=== PATIENT | male | born 1960 | race Two or more races ===

== ENCOUNTER 2023-02-09 07:59 | Emergency (ER) | payer BC, SELFPAY ==
[2023-02-09 08:01] VITALS: BP 162/102; PULSE 68; RESP 20; TEMP 36.4; O2SAT 99; BMI 26.6
--- NOTE | 2023-02-09 08:06 | ED_ITS ---
HPI - Dizziness General Chief Complaint: Dizziness Stated Complaint: NOSE BLEED/ DIZZINESS Time Seen by Provider: 02/09/23 08:06 History of Present Illness HPI Narrative: Patient presents to emergency department complaining of dizziness. Patient states he had epistaxis this morning from the right naris. Denied any trauma. He states it bled for an hour and a half and it was not stopping. The patient was at driving to work and was not able to drive himself home. He called his because he started feeling dizzy and had a headache and had some numbness to the right forearm. He has a history of hypertension and states he took all of his medications this morning but cannot recall what they're. He denied any visual disturbance, speech difficulties. He denied any palpitations, diaphoresis. Denied any nausea, vomiting, diarrhea, constipation, or abdominal pain. She takes Plavix. Patient is concerned because he had at [facility] year and a half ago for which she was seen at [facility]. 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 She states he last saw his neurologist last year and was given a clean bill of health. His blood pressure is very high. Related Data Home Medications Medication Instructions Recorded Confirmed atorvastatin 80 mg tablet 80 mg PO DAILY 02/09/23 02/09/23 clopidogrel 75 mg tablet 75 mg PO DAILY 02/09/23 02/09/23 lisinopril 40 mg tablet 40 mg PO DAILY 02/09/23 02/09/23 metoprolol succinate 25 mg 25 mg PO DAILY 02/09/23 02/09/23 tablet,extended release 24 hr omeprazole 20 mg capsule,delayed 40 mg PO DAILY 02/09/23 02/09/23 release Allergies Allergy/AdvReac Type Severity Reaction Status Date / Time No Known Drug Allergies Allergy Verified 02/09/23 08:07 Review of Systems ROS Status of ROS 10 or more systems reviewed and unremarkable except as noted in history and below Exam Narrative Exam Narrative: Nurses notes and vital signs reviewed and patient is not hypoxic. General: Nontoxic, Well-appearing and in no apparent distress. Skin: Warm, dry, no pallor noted. No Rash Head: Normocephalic, atraumatic. Neck: Supple, non-tender. Eye: Pupils are equal, round and EOMI. No scleral icterus. Ears, Nose, Mouth, and Throat: TM clear, no posterior oropharynx erythema. Right naris with septum clot. no active bleeding. no nasal mucosal hypertrophy, uvula is mid-line Oral mucosa is moist Cardiovascular: Regular Rate and Rhythm without murmur, gallop or rub. Respiratory: No accessory muscle use or respiratory distress. Lungs are clear to auscultation, no wheezing, rales or rhonchi Chest Wall: no tenderness Back: No midline thoracic or lumbar vertebral tenderness. No CVA tenderness Musculoskeletal: normal ROM, no calf or popliteal tenderness, no lower extremity edema/swelling GI: Abdomen is soft, non-distended. Normal bowel sounds. No masses appreciated. No tenderness to palpation. No rebound, guarding, or rigidity noted. Neurological: A&O x4. No cranial nerve dysfunction observed. No truncal ataxia. Moves all extremities. Sensation intact. Psychiatric: Cooperative and interactive. Normal mood and affect. Constitutional Vital Signs - 24 hr 02/09/23 08:01 02/09/23 08:52 02/09/23 08:52 Temperature 97.6 F Pulse Rate 61 62 Pulse Rate [Monitor] 68 Respiratory Rate 20 Blood Pressure 166/98 H 177/103 H Blood Pressure [Left Arm] 162/102 H Pulse Oximetry 99 Oxygen Delivery Method Room Air 02/09/23 08:53 02/09/23 08:28 02/09/23 09:39 Temperature Pulse Rate 97 H Pulse Rate [Monitor] 67 59 L Respiratory Rate 12 20 Blood Pressure 158/112 H Blood Pressure [Left Arm] 158/112 H 171/102 H Pulse Oximetry 98 98 Oxygen Delivery Method Room Air Room Air Course Vital Signs Vital signs: Vital Signs Temperature 97.6 F 02/09/23 08:01 Pulse Rate 68 02/09/23 08:01 Respiratory Rate 20 02/09/23 08:01 Blood Pressure 162/102 H 02/09/23 08:01 Pulse Oximetry 99 02/09/23 08:01 Oxygen Delivery Method Room Air 02/09/23 08:01 Temperature 97.6 F 02/09/23 08:01 Pulse Rate 59 L 02/09/23 09:39 Respiratory Rate 20 02/09/23 09:39 Blood Pressure 171/102 H 02/09/23 09:39 Pulse Oximetry 98 02/09/23 09:39 Oxygen Delivery Method Room Air 02/09/23 09:39 MDM - Dizziness MDM Narrative Medical decision making narrative: Patient's no longer bleeding. States the dizziness has resolved. And he does not have any forearm paresthesias. He states he is not sure if he fell. Or if it was just all due to the anxiety from the bleeding.Patient was given IV fluids. There is no active bleeding. Blood pressure remains 170/102. Patient states he took lisinopril, and metoprolol this morning. He continues to take Plavix. Discussed with the patient To follow-up with primary care doctor. He is to recheck his blood pressure at home and documented between now and the time he sees his primary care doctor. He was given parameters of when to return to the emergency department. The patient was given a nose clamp if he were to develop epistaxis in the future he will clamp and wait 20 minutes if there is no resolution he will return to the emergency department. He is to continue taking Plavix. At this time the patient is without objective evidence of an acute process requiring hospitalization or inpatient management. The patient has remained hemodynamically stable. No additional indication for emergent studies at this time. I answered all questions. Discussed discharge instructions including standard anticipatory guidance and what should prompt a return to the emergency department, including if they get worse are not getting better or develops any new or concerning symptoms. I've given them specific time frame in which to follow-up, and who to follow-up with. The patient demonstrates understanding. Patient is nontoxic and stable for discharge with outpatient follow-up. This note was created with the assistance of a speech recognition program. Although the intention is to generate documents that actually reflects the content of the visit, no guarantees can be provided that every mistake has been identified and corrected by editing. Differential Diagnosis Differential diagnosis: Likely orthostatic hypotension and transient cerebral ischemia Lab Data Attestation: I reviewed the patient's lab results. Labs: Lab Results 02/09/23 Range/Units 08:35 WBC 4.2 (4.0-11.0) 10^3/uL RBC 4.19 L (4.70-6.10) 10^6/uL Hgb 14.0 (14.0-18.0) g/dL Hct 39.7 L (42.0-54.0) % MCV 94.7 H (80.0-94.0) fL MCH 33.4 (25.9-34.0) pg MCHC 35.3 H (29.9-35.2) g/dL RDW 11.7 (11.0-15.0) % Plt Count 217 (150-450) 10^3/uL MPV 9.5 (9.5-13.5) fL Neut % (Auto) 59.7 (43.0-75.0) % Lymph % (Auto) 24.8 (20.5-60.0) % [place] % (Auto) 11.1 (1.7-12.0) % Eos % (Auto) 3.3 (0.9-7.0) % Baso % (Auto) 0.9 (0.2-2.0) % Neut # (Auto) 2.5 (1.4-6.5) 10^3/uL Lymph # (Auto) 1.1 L (1.2-3.8) 10^3/uL [place] # (Auto) 0.5 (0.3-0.8) 10^3/uL Eos # (Auto) 0.1 (0.0-0.7) 10^3/uL Baso # (Auto) 0.0 (0.0-0.1) 10^3/uL Abs Immat Gran (auto) 0.01 (0.00-0.03) 10^3/uL Imm/Tot Granulo (auto) 0.2 (0.0-0.5) % PT 10.5 (9.0-11.6) sec INR 0.99 Sodium 141 (136-145) mmol/L Potassium 4.0 (3.5-5.1) mmol/L Chloride 106 (98-107) mmol/L Carbon Dioxide 26.0 (21.0-32.0) mmol/L Anion Gap 13.0 BUN 16.0 (7.0-18.0) mg/dL Creatinine 0.96 (0.70-1.30) mg/dL Est GFR ( Amer) >60 (>=60) Est GFR (Non-Af Amer) >60 (>=60) BUN/Creatinine Ratio 16.7 Glucose 105 (74-106) mg/dL Calcium 8.5 (8.5-10.1) mg/dL Total Bilirubin 0.7 (0.2-1.0) mg/dL AST 20 (15-37) U/L ALT 29 (16-63) U/L Alkaline Phosphatase 69 (46-116) U/L Total Creatine Kinase 82 (39-308) U/L CK-MB (CK-2) 1.18 (<=3.60) ng/mL Myoglobin 48 (16-96) ng/mL Troponin I High Sens 7.8 (4.0-76.1) pg/mL Total Protein 6.7 (6.4-8.2) g/dL Albumin 3.8 (3.4-5.0) g/dL Globulin 2.9 g/dL Albumin/Globulin Ratio 1.3 ECG Data Attestation: I personally reviewed and interpreted this ECG as follows: Discharge Plan Discharge Chief Complaint: Dizziness Clinical Impression: Complaint of paresthesia, Epistaxis, Dizziness, Hypertension Patient Disposition: Home, Self-Care Time of Disposition Decision: 10:20 Condition: Good Mode of Transportation: Private Vehicle Prescriptions / Home Meds: No Action atorvastatin 80 mg tablet 80 mg PO DAILY clopidogrel 75 mg tablet 75 mg PO DAILY lisinopril 40 mg tablet 40 mg PO DAILY metoprolol succinate 25 mg tablet extended release 24 hr 25 mg PO DAILY omeprazole 20 mg capsule,delayed release(DR/EC) 40 mg PO DAILY Instructions: Nosebleed (ED), Hypertension (ED), Dizziness (ED) Additional Instructions: Continue taking all her medications. Record her blood pressure as discussed. Follow up with her primary care doctor in the morning for reevaluation. Return to the emergency department with any problems or concerns as discussed. Stand Alone Forms: Portal Instructions Referrals: Physician,Non-Staff, MD [Primary Care Provider] - 1 week
[2023-02-09 08:12] VITALS: PULSE 65
--- NOTE | 2023-02-09 08:17 | CT_ITS ---
The [address] [address] Patient Name: ROLAND CHARLES MRN: [id number] date: 1960 Sex: M Assigned Patient Location: ER Current Patient Location: Accession/Order Number: [id number] Exam Date: 02/09/2023 08:48 Report Date: 02/09/2023 09:13 At the request of: HEIDY RANDLE Procedure: CT head/brain wo con EXAMINATION: CT head/brain wo con HISTORY: dizziness, r arm numbness , nosebleed ; cerebrovascular accident one year ago COMPARISON: No relevant comparison available. TECHNIQUE: Axial CT images were obtained without IV contrast. Dose reduction techniques were achieved by using automated exposure control and/or adjustment of mA and/or kV according to patient size and/or use of iterative reconstruction technique. FINDINGS: BRAIN: 7 mm area of decreased attenuation within the anterior superior aspect of the left frontal lobe, likely early encephalomalacic changes from prior infarction. No edema, hemorrhage, mass, acute infarction, or inappropriate atrophy. CSF SPACES: No hydrocephalus, subarachnoid hemorrhage, or mass. Appropriate for age. SKULL: No fracture, mass, or other significant visible lesion. SINUSES: No significant mucosal thickening or fluid on the limited views. ORBITS: No appreciable abnormality on the limited views. OTHER: Negative IMPRESSION: 1. No intracranial hemorrhage or CT evidence of acute ischemia. 2. Small area of decreased density suspected to represent sequela of remote infarction within left frontal lobe. Electronically authenticated by: RAE SORIANO Date: 02/09/2023 09:13
--- NOTE | 2023-02-09 08:20 | ECG_ITS ---
The [facility] Test Date: 2023-02-09 Pat Name: ROLAND CHARLES Department: Room: - Gender: Male Nurses' Association Counselor: : 1960 Requested By: [id number] Order Number: [id number] Reading MD: CARLENE ZARCO Measurements Intervals [place] Rate: 60 P: 30 MD: 206 QRS: -21 QRSD: 84 T: -4 QT: 414 QTc: 416 Interpretive Statements 1100 Sinus rhythm 5222 Moderate voltage criteria for LVH, may be normal variant 7202 Moderate left axis deviation 9130 borderline ECG No previous ECG available for comparison Electronically Signed On 02-10-2023 6:35:10 EDT by CARLENE ZARCO
[2023-02-09 08:28] VITALS: BP 158/112; PULSE 67; RESP 12; O2SAT 98
[2023-02-09 08:47] LABS: Basophils Percent Auto 0.9 % (0.2-2.0); Eosinophils Absolute Auto 0.1 10^3/uL (0.0-0.7); Eosinophils Percent Auto 3.3 % (0.9-7.0); Hematocrit 39.7 % (42.0-54.0); Immature Granulocytes Abs Auto 0.01 10^3/uL (0.00-0.03); Immature Granulocytes Pct Auto 0.2 % (0.0-0.5); Lymphocytes Absolute Auto 1.1 10^3/uL (1.2-3.8); Lymphocytes Percent Auto 24.8 % (20.5-60.0); Mean Corpuscular HGB Conc 35.3 g/dL (29.9-35.2); Mean Corpuscular Hemoglobin 33.4 pg (25.9-34.0); Mean Corpuscular Volume 94.7 fL (80.0-94.0); Mean Platelet Volume 9.5 fL (9.5-13.5); Monocytes Absolute Auto 0.5 10^3/uL (0.3-0.8); Monocytes Percent Auto 11.1 % (1.7-12.0); Neutrophils Absolute Auto 2.5 10^3/uL (1.4-6.5); Neutrophils Percent Auto 59.7 % (43.0-75.0); Platelet Count 217 10^3/uL (150-450); Red Blood Count 4.19 10^6/uL (4.70-6.10); Red Cell Distribution Width 11.7 % (11.0-15.0); White Blood Count 4.2 10^3/uL (4.0-11.0)
[2023-02-09 08:52] VITALS: BP 166/98; BP 177/103; PULSE 61; PULSE 62
[2023-02-09 08:53] VITALS: BP 158/112; PULSE 97
[2023-02-09] MEDS: 0.9 % SODIUM CHLORIDE 1,000 ML 999 ML IV (08:59)
[2023-02-09 09:00] LABS: INR 0.99; Prothrombin Time 10.5 sec (9.0-11.6)
[2023-02-09 09:39] VITALS: BP 171/102; PULSE 59; RESP 20; O2SAT 98
[2023-02-09 09:57] LABS: Alanine Aminotransferase 29 U/L (16-63); Albumin Globulin Ratio 1.3; Albumin Level 3.8 g/dL (3.4-5.0); Alkaline Phosphatase 69 U/L (46-116); Aspartate Amino Transferase 20 U/L (15-37); BUN Creatinine Ratio 16.7; Bilirubin Total 0.7 mg/dL (0.2-1.0); Calcium 8.5 mg/dL (8.5-10.1); Chloride 106 mmol/L (98-107); Creatine Kinase 82 U/L (39-308); Creatine Kinase MB 1.18 ng/mL (<=3.60); Estimated GFR (African America >60 (>=60); Estimated GFR (Non-African Ame >60 (>=60); Globulin 2.9 g/dL; Glucose 105 mg/dL (74-106); Myoglobin 48 ng/mL (16-96); Sodium 141 mmol/L (136-145); Total Protein 6.7 g/dL (6.4-8.2); Troponin I High Sensitivity 7.8 pg/mL (4.0-76.1)
== END 2023-02-09 10:37 | disposition home or self-care (01) ==
PROVIDERS: Emergency Provider Emergency Medicine
DX: R42 Dizziness and giddiness (principal); R04.0 Epistaxis; I10 Essential (primary) hypertension; R20.2 Paresthesia of skin; Z79.899 Other long term (current) drug therapy; Z86.73 Personal history of transient ischemic attack (TIA), and cerebral infarction without residual deficits; Z79.02 Long term (current) use of antithrombotics/antiplatelets
CPT/HCPCS: 36415; 70450; 80053; 82550; 82553; 83874; 84484; 85025; 85610; 93005; 99285

== ENCOUNTER 2025-08-04 09:04 | Emergency (ER) | payer BC, SELFPAY ==
--- OUTSIDE RECORDS SUMMARY | 2024-12-31 08:30 | XMS_ITS ---
Author Organization The [facility] in [place] Address [address] [place] [address] Care Team Providers Care Professor Of Geology Name Role Phone Bette Burnett Primary Care Provider Provider, Cardio Unavailable [phone] REASON FOR VISIT Hortencia Catherine 165# CP Encounters Encounter Location Date Provider Diagnosis Cardiology [facility] [address] [place] [address] 12/31/2024 Cardio Provider Plan Of Treatment Next Appt Details Provider Name:Bette Baca , 01/22/2026 04:00:00 PM, [address] [place], [address], Progress Notes * Vipin CHARLES ADOB:11/1960 (64 yo M)Acc No.[id number]:12/31/2024 UNLOCKED PROGRESS NOTE Nuclear Stress Test Patient: Melo DIANA Vipin Matta :?Cardio ProviderDOB:1960???Age:64 Y ???Sex:MaleDate:12/31/2024Phone:[phone]:[address] [place] [id number]:Bette Burnett Subjective: * Chief Complaints: * 1 . Hortencia Catherine 165# CP. * Active Problem List G43.109 Migraine with aura a nd without status migrainosus, not intractable Modified On:08/23/2023W/U Status:ngfohkzjiN10.9Gastroesophageal reflux disease, esophagitis presence not specified Modified On:09/15/2020 Status:itprifbsdV63.56XAPathological compression fracture of lumbar vertebra, initial encounter Modified On:08/15/2020 Status:xlosnkzotO98.012AAcute lumbar myofascial strain Modified On:07/07/2020 Status:pzwkdewyqW04.9Anxiety Modified On:10/12/2021 Status:hfvxgiopdR15Nokvsopys (primary) hypertension Modified On:08/23/2023 Status:jjssbrpomZ95.91Right hemiparesis Modified On:01/01/2022 Status:zyfxddwgiG96.01Aphasia Modified On:01/01/2022 Status:austingzbM81.9CVA (cerebral vascular accident) Modified On:08/23/2023 Status:ackheqkypT87.9Erectile dysfunction, unspecified erectile dysfunction type Modified On:01/10/2023 Status:mtkusllmnS34.2Mixed hyperlipidemia Modified On:01/17/2024 Status:confirmed * Medical History: Objective: * Vitals: Assessment: Plan: * Treatment: * * Electronic signature of Cardio Provider , , , [id number] on 08/04/2025 at 09:33 AM ESTSign off status: PendingVisit Status:?R/S (Rescheduled) * Provider: Melo Green Date: 0 12/31/2024 Generated for Printing/Faxing/eTransmitting on:?08/04/2025 09:33 AM EST
--- OUTSIDE RECORDS SUMMARY | 2025-01-02 08:00 | XMS_ITS ---
Author Organization The [facility] in [place] Address [address] [place] [address] Care Team Providers Care Proof Operator Name Role Phone Bette Burnett Primary Care Provider Provider, Cardio Unavailable [phone] REASON FOR VISIT Hortencia Catherine 165# CP Encounters Encounter Location Date Provider Diagnosis Cardiology [facility] [address] [place] [address] 01/02/2025 Cardio Provider Plan Of Treatment Next Appt Details Provider Name:Bette Baca , 01/22/2026 04:00:00 PM, [address] [place], [address], Progress Notes * Vipin CHE ADOB:11/1960 (64 yo M)Acc No.[id number]:01/02/2025 UNLOCKED PROGRESS NOTE Nuclear Stress Test Patient: Melo DIANA Vipin Matta :?Cardio ProviderDOB:1960???Age:64 Y ???Sex:MaleDate:01/02/2025Phone:[phone]:[address] [place] [id number]:Bette Burnett Subjective: * Chief Complaints: * 1 . Hortencia Catherine 165# CP. * Active Problem List G43.109 Migraine with aura a nd without status migrainosus, not intractable Modified On:08/23/2023W/U Status:axcxprovzA67.9Gastroesophageal reflux disease, esophagitis presence not specified Modified On:09/15/2020 Status:xsogylabvX28.56XAPathological compression fracture of lumbar vertebra, initial encounter Modified On:08/15/2020 Status:xqzklgevuF36.012AAcute lumbar myofascial strain Modified On:07/07/2020 Status:tojyhnnlmD99.9Anxiety Modified On:10/12/2021 Status:eniqezcroQ05Sfeqjqyob (primary) hypertension Modified On:08/23/2023 Status:blmbzpelhN90.91Right hemiparesis Modified On:01/01/2022 Status:jjxahunazP70.01Aphasia Modified On:01/01/2022 Status:mmnhhnmwgD94.9CVA (cerebral vascular accident) Modified On:08/23/2023 Status:ujzcavalqI48.9Erectile dysfunction, unspecified erectile dysfunction type Modified On:01/10/2023 Status:nhikqkfrnH39.2Mixed hyperlipidemia Modified On:01/17/2024 Status:confirmed * Medical History: Objective: * Vitals: Assessment: Plan: * Treatment: * * Electronic signature of Cardio Provider , , , [id number] on 08/04/2025 at 09:32 AM ESTSign off status: PendingVisit Status:?CANC (Cancelled) * Provider: Melo Green Date: 0 01/02/2025 Generated for Printing/Faxing/eTransmitting on:?08/04/2025 09:32 AM EST
--- OUTSIDE RECORDS SUMMARY | 2025-07-22 10:30 | XMS_ITS ---
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 INDICATIONS: HIGH BLOOD PRESSURE. Oral; Duration: 30 Days10/16/2024 ActiveAspirin 81 MG1 tablet Orally Once a dayActiveMetoprolol Succinate ER 50 MG TAKE 1 TABLET BY MOUTH EVERY DAY; Duration: 90 daysActiveSildenafil Citrate 50 MG1 tablet as needed Orally Once a day; Duration: 30 day(s)ActiveAtorvastatin Calcium 80 MGTAKE 1 TABLET BY MOUTH EVERY DAY FOR 90 DAYS; Duration: 90Active Clopidogrel Bisulfate 75 MGTAKE 1 TABLET BY MOUTH EVERY DAY FOR 90 DAYS; Duration: 90ActiveLisinopril 40 MGTAKE 1 TABLET BY MOUTH EVERY DAY; Duration: 90 Active Social History Tobacco Use: Social History Observation Description Date Details (start date - stop date) Never Smoker NA - NA Tobacco Use/Smoking Question Answer Notes Patient is a nonsmoker Vital Signs Weight 166.4 lbs 07/22/2025 Height 64 in 07/22/2025 Blood pressure systolic 118 mm Hg 07/22/20 25 Blood pressure diastolic 78 mm Hg 025 Heart Rate 69 /min 07/22/2025 Respiratory Rate 16 /min 07/22/2025 BMI 28.56 kg/m2 07/22/2025 Oximetry 98 % 07/22/2025 Encounters Encounter Location Date Provider Diagnosis [facility] [address] [place] [address] 07/22/2025 Bette Burnett Gastroesophageal ref lux disease, esophagitis presence not specified K21.9 ; Essential (primary) hypertension I10 and Mixed hyperlipidemia E78.2 Assessments Encounter Date Diagnosis (ICD Code) Assessment Notes Treatment Notes Treatment Clinical Notes Section Notes 07/22/2025 Gastroesophageal ref lux disease, esophagitis presence not specified (ICD-10 - K21.9) 07/22/2025Essential (primary) hypertension (ICD-10 - I10)BP stable, continue current meds109/21/2024Mixed hyperlipidemia (ICD-10 - E78.2)STable, continue current med Plan Of Treatment Medication Medication Name Sig Start Date Stop Date Notes Omeprazole 20 MG TAKE 1 [facility] 30 MINUTES BEFORE MORNING MEAL Orally Once a day; Duration: 90 days Treatment Notes Assessment Notes Essential (primary) hypertension BP stab le, continue current meds Mixed hyperlipidemia STable, continue cu rrent med Next Appt Details Follow Up: 6 Months, Reason: Provider Name:Bette Baca , 01/22/2026 04:00:00 PM, [address] [place], [address], Progress Notes * Vipin CHE ADOB:11/1960 (64 yo M)Acc No.[id number]:07/22/2025 Established Patient: Melo ADALGISA Vipin Matta :?Bette Hortencia MDDOB:1960???Age:64 Y ???Sex:MaleDate:07/22/2025Phone:[phone]:[address] [place], [place]-[address]Check In:03:31 PM ESTCheck Out:04:26 PM EST Subjective: * Chief Complaints: * - 6 Month Follow Up- * HPI: ???General:? _. ?patient presents today for a 6 month f/u.-ed Had left 4th finger crush injury in March, and had urgent surgery 04/01/25. -has healed up well, and he is able to get back to playing [employer] Overall doing ok. Had vertigo a few weeks ago, when he laid down in bed one night.? Went away within a few days.Hasn't had for a long time prior to this. GERD - happening more often lately,. ???Depression Screening:?PHQ-2 (2015 Edition)?Little interest or pleasure in doing things? Not at all ?Feeling down, depressed, or hopeless??Not at all ?Total Score?0 * ROS: ???General/Constitutional:?Chills?denies.?Fatigue?denies.?Fever?denies.?HEENT:?Nasal congestion?denies.?Sore throat?denies. Runny Nose?Denies.?Ear Pain?Denies.?Cardiovascular:?Lower Extremity Edema?denies.?Chest pain?denies.& #160;Palpitations?denies.?Respiratory:?Cough?denies.?Shortness of breath?denies.?Wheezing?denies.?Gastrointestinal:?Abdominal pain?denies.?Constipation?denies.? Diarrhea?denies.?Nausea?denies.?Genitourinary:?Urgency?denies.?Frequent urination?denies.?Painful urination?denies.?Musculoskeletal:?Body aches?Denies.?Painful joints?denies.?Weakness?denies.?Skin:?Rash?denies.?Neurologic:?Dizziness?denies.?Headache?denies.?Psychiatric:?Depression?denies.?Anxiety?denies.?Difficulty sleeping?denies.? * Active Problem List G43.109 Migraine with aura a nd without status migrainosus, not intractable Modified On:08/23/2023 Status:ufwshqwugA36.9Gastroesophageal reflux disease, esophagitis presence not specified Modified On:09/15/2020 Status:zheogwvywM72.56XAPathological compression fracture of lumbar vertebra, initial encounter Modified On:08/15/2020 Status:jwlfurkacD89.012AAcute lumbar myofascial strain Modified On:07/07/2020 Status:wvmjceqnkX48.9Anxiety Modified On:10/12/2021 Status:cvxpuwtkmP59Pjcrtcujq (primary) hypertension Modified On:08/23/2023 Status:byrtjabwiS42.91Right hemiparesis Modified On:01/01/2022 Status:eihoixpqvS63.01Aphasia Modified On:01/01/2022 Status:gwhbekwguF01.9CVA (cerebral vascular accident) Modified On:08/23/2023 Status:xctdrndsdU80.9Erectile dysfunction, unspecified erectile dysfunction type Modified On:01/10/2023 Status:uwpbnfzzoU64.2Mixed hyperlipidemia Modified On:01/17/2024 Status:confirmed * Medical History: * Surgical History: t onsillectomy appendectomy colonoscopy - normal 2017roke thrombectomy 12/2021 * Hospitalization/Major Diagno stic Procedure: B ack injury- [facility] 01/2020TT cva 12/26/21CP, SOB, dizziness - [facility] 10/15-10/16/24 * Family History: F ather: 38 yrs, from MVA. M other: 72 yrs, lung cancer, diagnosed with Cancer. M igrated Family History:: diabetes mellitus. 2 son(s) , 1 daughter(s) . .? * Social History: ???Tobacco Use:?Tobacco Use/Smoking?Patient is a?nonsmoker * Medications: T akingamLODIPine Besylate 5 MG Tablet TAKE 1 TABLET (5 MG TOTAL) BY MOUTH IN THE MORNING. INDICATIONS: HIGH BLOOD PRESSURE. Oral Aspirin 81 MG Tablet Chewable 1 tablet Orally Once a day Atorvastatin Calcium 80 MG Tablet TAKE 1 TABLET BY MOUTH EVERY DAY FOR 90 DAYS Clopidogrel Bisulfate 75 MG Tablet TAKE 1 TABLET BY MOUTH EVERY DAY FOR 90 DAYS Lisinopril 40 MG Tablet TAKE 1 TABLET BY MOUTH EVERY DAY Metoprolol Succinate ER 50 MG Tablet Extended Release 24 Hour TAKE 1 TABLET BY MOUTH EVERY DAY Omeprazole 20 MG Capsule Delayed Release TAKE 1 CAPSULE BY MOUTH 30 MINUTES BEFORE MORNING MEAL Orally Once a day Sildenafil Citrate 50 MG Tablet 1 tablet as needed Orally Once a day Medication List reviewed and reconciled with the patientTaking amLODIPine Besylate 5 MG Tablet TAKE 1 TABLET (5 MG TOTAL) BY MOUTH IN THE MORNING. INDICATIONS: HIGH BLOOD PRESSURE. Oral Taking Aspirin 81 MG Tablet Chewable 1 tablet Orally Once a day Taking Atorvastatin Calcium 80 MG Tablet TAKE 1 TABLET BY MOUTH EVERY DAY FOR 90 DAYS Taking Clopidogrel Bisulfate 75 MG Tablet TAKE 1 TABLET BY MOUTH EVERY DAY FOR 90 DAYS Taking Lisinopril 40 MG Tablet TAKE 1 TABLET BY MOUTH EVERY DAY Taking Metoprolol Succinate ER 50 MG Tablet Extended Release 24 Hour TAKE 1 TABLET BY MOUTH EVERY DAY Taking Omeprazole 20 MG Capsule Delayed Release TAKE 1 CAPSULE BY MOUTH 30 MINUTES BEFORE MORNING MEAL Orally Once a day Taking Sildenafil Citrate 50 MG Tablet 1 tablet as needed Orally Once a day Medication List reviewed and reconciled with the patient * Allergies: N .K.D.A.no[Allergies Verified] Objective: * Vitals: W t:166.4lbs, Ht: 64 in, BP:118/78mm Hg, HR:69/min, RR:16/min, BMI:28.56Index, Oxygen sat %:98%, Ht-cm: 162.56 cm, Wt-k.48 kg. * Examination: ???General Examination: ?GENERAL APPEARANCE:?No acute distress, Well hydrated, WellDeveloped.?NECK:?Neck supple, No thyromegaly, No cervical LAD.?LUNGS:?Clear to auscultation bilaterally, No wheezes, rales, rhonchi.?CARDIO:?Regular rate and rhythm, No murmurs, rubs, gallops.?ABDOMEN:?Soft, nontender, not distended, normal bowel sounds.?SKIN:? Warm and Dry, No suspicious lesions.?EXTREMITIES:? No edema.?NEUROLOGIC/PSYCHIATRIC:?Alert, Oriented,mood and affect appropriate.? Assessment: * Assessment: 1.?Gastroesophageal reflux disease, esophagitis presence not specified - K21.9 (Primary)? ?2.?Essential (primary) hypertension - I10???3.?Mixed hyperlipidemia - E78.2??? Plan: * Treatment: Refill Omeprazole Capsule Delayed Release, 20 MG, TAKE 1 CAPSULE BY MOUTH 30 MINUTES BEFORE MORNINGMEAL, Orally, Once a day, 90 days, 90, Refills 1.?? 2.?Essential (primary) hypertension? Notes: BP stable, continue current meds??3.?Mixed hyperlipidemia? Notes: STable, continue current med?? * Procedure Codes: 3 078F DIAST BP < 80 MM [id number] SYST BP LT 130 MM HG * Follow Up: 6 Months * * ign off status: CompletedVisit Status:?CHK (Check Out) true * Provider: Hosea Burnett MD Date: 1 09/21/2024 Generated for Printing/Faxing/eTransmitting on:?08/04/2025 09:32 AM EST History and Physical Notes * HPI (History of Present Illness) CategorySub-CategoryDetailNotesCategory NotesGeneral patient presents today for a 6 month f/u.-ed Had left 4th finger crush injury in March, and had urgent surgery 04/01/25. -has healed up well, and he is able to get back to playing [employer] Overall doing ok. Had vertigo a few weeks ago, when he laid down in bed one night. Went away within a few days. Hasn't had for a long time prior to this. GERD - happening more often lately, Depression ScreeningPHQ-2 (2015 Edition)Little interest or pleasure in doing things?: Not at allFeeling down, depressed, or hopeless?: Not at allTotal Score: 0 Examination CategorySub-CategoryDetailNotesCategory NotesGeneral ExaminationGENERAL APPEARANCE:No acute distress, Well hydrated, Well DevelopedNECK:Neck supple, No thyromegaly, No cervical LADCARDIO:Regular rate and rhythm, No murmurs, rubs, gallopsLUNGS:Clear to auscultation bilaterally, No wheezes, rales, rhonchi ABDOMEN:Soft, nontender, not distended, normal bowel soundsSKIN:Warm and Dry, No suspicious lesionsEXTREMITIES:No edemaENMT:NEUROLOGIC/PSYCHIATRIC:Alert, Oriented, mood and affect appropriate
[2025-08-04 09:10] VITALS: BP 188/100; PULSE 80; TEMP 36.8; O2SAT 97; BMI 28.3
[2025-08-04 09:15] VITALS: BP 164/108
--- NOTE | 2025-08-04 09:18 | CT_ITS ---
The [address] [address] Patient Name: ROLAND CHARLSE MRN: [id number] date: 1960 Sex: M Assigned Patient Location: ED.MAIN Current Patient Location: ED.MAIN Accession/Order Number: [id number] Exam Date: 08/04/2025 10:05 Report Date: 08/04/2025 10:51 At the request of: PARRISH CONTEH MD Procedure: CT abdomen pelvis w con CT ABDOMEN AND PELVIS WITH INTRAVENOUS CONTRAST: CLINICAL HISTORY: Left upper quadrant pain COMPARISON: None TECHNIQUE: Spiral images were obtained through the abdomen and pelvis following the administration of intravenous contrast. This CT exam was performed using one or more following dose reduction techniques: Automated exposure control, adjustment of the mA and/or kV according to patient size, or use of iterative reconstruction technique. FINDINGS: No focal opacity. Liver demonstrates diffuse hypoattenuation which may suggest fatty changes. Otherwise the gallbladder, spleen, adrenals, kidneys and pancreas are unremarkable. Subcentimeter hypodensities of the kidneys too small for accurate characterization. No hydronephrosis. Mild retained stool the colon. No bowel obstruction. Appendix is not identified. No pericecal inflammatory changes. Mild distal colonic diverticulosis. There is a fat-containing left inguinal hernia otherwise the bladder unremarkable. Prostate is 4 smears in size. No free air or free fluid. Aorta normal caliber. Degenerative changes lumbar spine. Mild superior plate compression L1, likely chronic finding. CT/CT abdomen pelvis w con IMPRESSION: Negative acute inflammatory process or bowel obstruction. Fat-containing left inguinal hernia noted. Impression dictated by: Malcolm Parham M.D. 08/04/2025 10:51 AM Dictation Location: [place] [address] Electronically authenticated by: [id number] Y Date: 08/04/2025 10:51
--- NOTE | 2025-08-04 09:18 | ED.GENADUL1 ---
HPI HPI - General Adult General Chief complaint: Abdominal Pain Stated complaint: ABDOMINAL PAIN Time Seen by Provider: 08/04/25 09:08 Source: patient and family Mode of arrival: walk-in Limitations: no limitations History of Present Illness HPI narrative: 64-year-old male presents for abdominal pain. It is in the left upper quadrant of his abdomen. He recently had a cough and that was treated with Zithromax and steroids and the cough is much better. Now he has developed this left upper quadrant pain which is tender to touch. No injury. No vomiting or constipation or diarrhea or blood in his stool. He has had this for the past day. Related Data Home Medications ?Medication ?Instructions ?Recorded ?Confirmed atorvastatin 80 mg tablet 80 mg PO DAILY 02/09/23 02/09/23 clopidogrel 75 mg tablet 75 mg PO DAILY 02/09/23 02/09/23 lisinopril 40 mg tablet 40 mg PO DAILY 02/09/23 02/09/23 metoprolol succinate 25 mg 25 mg PO DAILY 02/09/23 02/09/23 tablet,extended release 24 hr omeprazole 20 mg capsule,delayed 40 mg PO DAILY 02/09/23 02/09/23 release Allergies Allergy/AdvReac Type Severity Reaction Status Date / Time No Known Drug Allergies Allergy Verified 08/04/25 09:09 Review of Systems ROS Narrative A ten point review of systems is negative except as noted above. PFSH PFSH Social History Little interest or pleasure in doing things: not at all Feeling down, depressed, or hopeless: not at all Exam Narrative Exam Narrative: Nurses note and vital signs reviewed General:The patient appears well and in no apparent distress.Patient is resting comfortably on cart. Skin:Warm, dry, no pallor noted.There is no rash noted. Head:Normocephalic, atraumatic Eye: Normal conjunctiva, no drainage Ears, Nose, Mouth, and Throat: oral mucosa is moist. Nares patent. Cardiovascular:Regular Rate and Rhythm Respiratory:Patient is in no distress, no accessory muscle use, lungs are clear to auscultation, no wheezing, rales or rhonchi Back:non-tender GI: Tenderness present in the left upper quadrant without mass. No bruise rash or other skin defects present. Musculoskeletal: The patient has no evidence of calf tenderness, no pitting edema, symmetrical pulses noted bilaterally Neurological:A&O, normal speech Psychiatric:Cooperative Constitutional Vital Signs, click to edit/add: Last Vital Signs Temp 98.2 F 08/04/25 09:10 Pulse 80 08/04/25 09:10 Resp 20 08/04/25 09:10 BP 164/108 H 08/04/25 09:15 Pulse Ox 97 08/04/25 09:10 O2 Del Method Room Air 08/04/25 09:10 Course Vital Signs Vital signs: Vital Signs Temperature 98.2 F 08/04/25 09:10 Pulse Rate 80 08/04/25 09:10 Respiratory Rate 20 08/04/25 09:10 Blood Pressure 188/100 H 08/04/25 09:10 Pulse Oximetry 97 08/04/25 09:10 Oxygen Delivery Method Room Air 08/04/25 09:10 Temperature 98.2 F 08/04/25 09:10 Pulse Rate 80 08/04/25 09:10 Respiratory Rate 20 08/04/25 09:10 Blood Pressure 164/108 H 08/04/25 09:15 Pulse Oximetry 97 08/04/25 09:10 Oxygen Delivery Method Room Air 08/04/25 09:10 Medical Decision Making MDM Narrative Medical decision making narrative: CT scan shows a small inguinal fat-containing hernia but no findings to explain his symptoms. He has been coughing and doing some heavy lifting so I suspect that he has pulled a muscle. Blood work also normal and he is discharged home. Treatment diagnosis and follow-up were discussed with the patient. Differential Diagnosis Differential Diagnosis: Colitis, diverticulitis, constipation, muscle strain Lab Data Lab results reviewed: Yes I reviewed the patient's lab results Labs: Lab Results 08/04/25 08/04/25 Range/Units 09:15 10:26 WBC 11.4 H (4.0-11.0) 10^3/uL RBC 4.57 L (4.70-6.10) 10^6/uL Hgb 15.4 (14.0-18.0) g/dL Hct 42.9 (42.0-54.0) % MCV 93.9 (80.0-94.0) fL MCH 33.7 (25.9-34.0) pg MCHC 35.9 H (29.9-35.2) g/dL RDW 11.4 (11.0-15.0) % Plt Count 260 (150-450) 10^3/uL MPV 9.3 L (9.5-13.5) fL Neut % (Auto) 87.7 H (43.0-75.0) % Lymph % (Auto) 7.5 L (20.5-60.0) % Posey % (Auto) 3.6 (1.7-12.0) % Eos % (Auto) 0.0 L (0.9-7.0) % Baso % (Auto) 0.3 (0.2-2.0) % Neut # (Auto) 10.0 H (1.4-6.5) 10^3/uL Lymph # (Auto) 0.9 L (1.2-3.8) 10^3/uL Posey # (Auto) 0.4 (0.3-0.8) 10^3/uL Eos # (Auto) 0.0 (0.0-0.7) 10^3/uL Baso # (Auto) 0.0 (0.0-0.1) 10^3/uL Abs Immat Gran (auto) 0.10 H (0.00-0.03) 10^3/uL Imm/Tot Granulo (auto) 0.9 H (0.0-0.5) % Sodium 144 (136-145) mmol/L Potassium 4.6 (3.5-5.1) mmol/L Chloride 108 H (98-107) mmol/L Carbon Dioxide 24.0 (21.0-32.0) mmol/L Anion Gap 16.6 BUN 15.0 (7.0-18.0) mg/dL Creatinine 1.06 (0.70-1.30) mg/dL Est GFR ( Amer) >60 (>=60 mL/min/1.73m^2) Est GFR (Non-Af Amer) >60 (>=60 mL/min/1.73m^2) BUN/Creatinine Ratio 14.2 Glucose 133 H (74-106) mg/dL Calcium 8.9 (8.5-10.1) mg/dL Total Bilirubin 0.6 (0.2-1.0) mg/dL Direct Bilirubin 0.2 (0.0-0.2) mg/dL AST 22 (15-37) U/L ALT 36 (16-63) U/L Alkaline Phosphatase 93 (46-116) U/L Total Protein 7.0 (6.4-8.2) g/dL Albumin 3.9 (3.4-5.0) g/dL Globulin 3.1 g/dL Albumin/Globulin Ratio 1.3 Amylase 28 (25-115) U/L Lipase 42.0 (16.0-77.0) U/L Urine Color Yellow (YELLOW) Urine Clarity Clear (CLEAR) Urine pH 5.5 (5.0-9.0) Ur Specific [place] 1.015 (1.005-1.025) Urine Protein Negative (NEG/TRACE) mg/dL Urine Glucose (UA) Negative (NEGATIVE) mg/dL Urine Ketones Negative (NEGATIVE) mg/dL Urine Occult Blood Negative (NEGATIVE) Urine Nitrite Negative (NEGATIVE) Urine Bilirubin Negative (NEGATIVE) Urine Urobilinogen 0.2 (0.2-1.0) EU/dL Ur Leukocyte Esterase Negative (NEGATIVE) Urine RBC 0-2 (0-2) #/HPF Urine WBC 0-2 A (NONE SEEN) #/HPF Ur Squamous Epith Cells Rare (NONE/RARE) #/LPF Urine Crystals None seen (None Seen) #/HPF Urine Bacteria None seen (NONE SEEN) #/HPF Urine Casts None seen (NONE SEEN) #/LPF Urine Mucus None seen (NONE SEEN) Imaging Data CT scan - abdomen: Radiologist's impression: ITS Impressions Abdomen/Pelvis CT 08/04/25 09:18 IMPRESSION: Negative acute inflammatory process or bowel obstruction. Fat-containing left inguinal hernia noted. Impression dictated by: Malcolm Parham M.D. 08/04/2025 10:51 AM Dictation Location: [place] [address] Electronically authenticated by: [id number] Y Date: 08/04/2025 10:51 Discharge Plan Discharge Chief Complaint: Abdominal Pain Clinical Impression: Abdominal wall pain Patient Disposition: Home, Self-Care Time of Disposition Decision: 11:06 Condition: Good Mode of Transportation: Private Vehicle Prescriptions / Home Meds: No Action atorvastatin 80 mg tablet 80 mg PO DAILY clopidogrel 75 mg tablet 75 mg PO DAILY lisinopril 40 mg tablet 40 mg PO DAILY metoprolol succinate 25 mg tablet extended release 24 hr 25 mg PO DAILY omeprazole 20 mg capsule,delayed release(DR/EC) 40 mg PO DAILY Print Language: Slovenian Instructions: Abdominal Pain (ED) Referrals: Physician,Non-Staff, [Physician] - 1 week
[2025-08-04 09:31] LABS: Hematocrit 42.9 % (42.0-54.0); Hemoglobin 15.4 g/dL (14.0-18.0); Immature Granulocytes Abs Auto 0.10 10^3/uL (0.00-0.03); Immature Granulocytes Pct Auto 0.9 % (0.0-0.5); Lymphocytes Absolute Auto 0.9 10^3/uL (1.2-3.8); Mean Corpuscular HGB Conc 35.9 g/dL (29.9-35.2); Mean Corpuscular Hemoglobin 33.7 pg (25.9-34.0); Mean Corpuscular Volume 93.9 fL (80.0-94.0); Platelet Count 260 10^3/uL (150-450); Red Blood Count 4.57 10^6/uL (4.70-6.10); White Blood Count 11.4 10^3/uL (4.0-11.0)
--- OUTSIDE RECORDS SUMMARY | 2025-08-04 09:33 | XMS_ITS | Patient Health Record ---
Author Organization [facility] in [place] Address [address] [place] [address] Care Team Providers Care Drill Punch Operator Name Role Phone Hortencia Bette Primary Care Provider [phone] Provider, Cardio Unavailable [phone] Indio Grider Unavailable [phone] Nathan Gonzales Unavailable [phone] Allergies No Known Allergies Results Component Value Reference Range Notes CMP (COMPLETE METABOLIC PANE L) Reviewed date:01/16/2025 03:44:26 PM Interpretation:Normal Performing Lab:[facility], [address] [place], [address] Notes/Report: FACILITY: [facility] [place] [id number] GLUCOSE 85 (74 - 106) MG/DL BUN20(7 - 26) MG/DLCREATININE, BLOOD0.91(0.66 - 1.25) MG/EBNLWDNE644(137 - 145) MMOL/LPOTASSIUM4.4(3.5 - 5.1) MMOL/YIBUENDJC512(98 - 107) MMOL/LCARBON SMSYNEN49 (22 - 30) MMOL/LCALCIUM9.3(8.6 - 10.6) MG/DLALBUMIN4.4(3.5 - 5.0) G/DLTOTAL PROTEIN7.1(6.3 - 8.2) G/DLALK PHOS92(38 - 126) U/LALT (SGPT)23(1 - 45) U/LAST (SGOT)24(15 - 46) U/LBILIRUBIN, TOT1.0(0.2 - 1.3) MG/DLGFR-NON AFRIC-AMER84.4 (60.0 - 133.8) ML/M1.7GFR- MEAO936.1(60.0 - 161.8) ML/M1.7LIPID PANEL (CHOL/TRIG/HDL/LDL) Reviewed date:01/16/2025 03:44:10 PM Interpretation:Total 152, TG 93, HDL 63, LDL 70 Performing Lab:[facility], [address] [place], [place], [id number] Notes/Report: CHOL REFERENCE RANGE: DESIRABLE: < 200 MG/DL BORDERLINE: 200 - 239 MG/DL HIGH RISK: > 240 MG/DL HDL REFERENCE RANGE: DESIRABLE: >45 MG/DL BORDERLINE: 32 - 45 MG/DL HIGH RISK: < 32 MG/DL LDL REFERENCE RANGE: DESIRABLE: < 130 MG/DL BORDERLINE: 130 - 159 MG/DL HIGH RISK: > 160 MG/DL CHOL-HDL RATIO: MALE: LOW RISK : 0 - 5.0, MOD RISK: 5.1 - 9.6, HIGH RISK: > 9.6 FEMALE: LOW RISK : 0 - 4.4, MOD RISK: 4.5 - 7.1, HIGH RISK: > 7.1 FACILITY: [facility] [id number](120 - 200) MG/ISAEHFKALVMGKJB07(30 - 150) MG/DLHDL63(40.0 - 60.0) MG/DLLDL (CALC)70(0 - 130) MG/YDXUAZ46(7 - 46) MG/DLCHOL-HDL RATIO2.4 (0.0 - 5.0)CBC WITH DIFF (EXP 06/2025) Reviewed date:01/16/2025 03:42:09 PM Interpretation:MCV 100.1 Performing Lab:[facility], [address] [place], [place], [id number] Notes/Report: FACILITY: [facility] [id number](3.80 - 10.60) x10^7rcYLP0.54(4.70 - 6.10) x10^7gdRQEXECTLNN32.1 (14.0 - 18.0) G/HCVEKQQBJHHJ30.7(42.0 - 52.0) %XUS553.7(80.0 - 94.0) flMCH33.3 (27.0 - 33.0) RHDXDK40.0(30.0 - 37.0) G/DLRDW-SD44.2(37.0 - 49.0) fcVYG145(130 - 400) x10^0ivOAMO82.0() %LYMPS18.0() %MONOS9.6() %EOSINOPHIL2.2() %BASOS0.6() % IMMATURE GRANS (IG)0.6() %ABS NEUTROPHIL4.97(1.50 - 7.00) x10^3ulABS LYMPHOCYTE 1.30(0.96 - 5.40) x10^3ulABS MONOCYTE0.69(0.10 - 1.00) x10^3ulABS EOSINOPHIL0.16 (0.00 - 0.40) x10^3ulABS BASOPHIL0.04(0.00 - 0.16) x10^3ulABS IMMATURE GRANS0.04 (0.00 - 0.11) x10^3ulPSA, TOTAL Reviewed date:12/12/2024 04:02:37 PM Interpretation:0.88 Performing Lab:[facility], [facility] [address] [place], [address] Notes/Report: FACILITY: [facility] [id number] SP AG0.88(0.00 - 4.00) NG/ML manufactures and/or methods may not be comparable. Patient results determined by assays using different test technique. PSA Min. Detection = 0.06 NG/ML. PSA performed on Spotistic 5600. An immunometric equimolar Reason For Referral No Information Medications Medication SIG (Take, Route, Frequency, Duration) Notes Start Date End Date Status Omeprazole 20 MG TAKE 1 CAPSULE BY [facility] 30 MINUTES BEFORE MORNING MEAL Orally Once [...] TABLET BY MOUTH EVERY DAY; Duration: 90 ActiveZithromax Z-Abrahan 250 MGas directed Orally once a day; Duration: 5 days 5Active Social History Tobacco Use: Social History Observation Description Date Details (start date - stop date) Never Smoker NA - NA Tobacco Use/Smoking Question Answer Notes Patient is a nonsmoker Alcohol Screen (Audit-C) Question Answer Notes Did you have a drink containing alcohol in the p ast year? Yes How often did you have 6 or more drinks on one occasion in the past year?Never (0 point)Ckpmkr7MxayohddubdngsCnovvgrxAlovmu Will Question Answer Notes Living Will No, patient does not have a living will and no information was provided Problems Problem Type SNOMED Code ICD Code Onset Dates Problem Status W/U Status Risk Notes Problem Essential hypertension (34711709 ) Essential (primary) hypertension (I10) ActiveconfirmedProblemMixed hyperlipidemia (020308245)Mixed hyperlipidemia (E78.2)ActiveconfirmedProblemAphasia (50621081)Aphasia (R47.01)Activeconfirmed ProblemAnxiety (86864478)Anxiety (F41.9)ActiveconfirmedProblemCVA - Cerebrovascular accident (660302793)CVA (cerebral vascular accident) (I63.9) ActiveconfirmedProblemGastroesophageal reflux disease (503107302) Gastroesophageal reflux disease, esophagitis presence not specified (K21.9) ActiveconfirmedProblemMigraine with aura (3829088)Migraine with aura and without status migrainosus, not intractable (G43.109)ActiveconfirmedProblemErectile dysfunction (disorder) (583431170)Erectile dysfunction, unspecified erectile dysfunction type (N52.9)ActiveconfirmedProblemRight hemiparesis (626480722)Right hemiparesis (G81.91)ActiveconfirmedProblemLow back strain (disorder) (354624237) Acute lumbar myofascial strain (S39.012A)ActiveconfirmedProblemPathological fracture of vertebra (834335818)Pathological compression fracture of lumbar vertebra, initial encounter (M48.56XA)Activeconfirmed Vital Signs Heart Rate 69 /min 07/22/2025 Respiratory Rate16 /min07/22/2025lood pressure xpajezqvb64 mm Hg07/22/2025 Byhokqqc16 %07/22/20252091Uplfsh01 in07/22/2025lood pressure zffuilqx503 mm Hg 07/22/20255867Vtyrmv748.4 lbs109/21/2024BMI28.56 kg/m207/22/2025 Encounters Encounter Location Date Provider Diagnosis [facility] [address] [place] [address] 07/29/2025 Bette [facility] [place] [address]/03/2025Heather BrooklynGastroesophageal reflux disease, esophagitis presence not specified K21.9 [facility] [place] [address]/Heather [facility] [address] [place] [address]/Heather [facility] [place] [address]/10/2024Daniel HerringCough R05.9[facility] [address] [place] [address]/01/20[facility] [place] [address]/08/2024Heather [facility] [place] [address]/07/2024 [facility] E78.2 and Personal history of transient ischemic attack (TIA), and cerebral infarction without residual deficits Z86.73 [facility] [place] [address]/[facility]ather [facility] without abnormal findings Z00.00 ; Essential (primary) hypertension I10 ; Anxiety F41.9 ; Gastroesophageal reflux disease, esophagitis presence not specified K21.9 and Mixed hyperlipidemia E78.2Cardiology [facility] [place] [address] 01/14/2025[place] [address] [place] [address]/Heather [facility] hospitalEnc[facility] for [facility] test Z01.89[place] [address] [place] [address]/Heather Burnett Other chest pain R07.89 ; Essential (primary) hypertension I10 ; Mixed hyperlipidemia E78.2 and Personal history of transient ischemic attack (TIA), and cerebral infarction without residual deficits Z86.73[place] [address] [place] [address]/Heabrandon Leenes Gastroesophageal reflux disease, esophagitis presence not specified K21.9 ; Essential (primary) hypertension I10 and Mixed hyperlipidemia E78.2[place]is [place] [address] [place] [address]/Heabrandon Burnett Assessments Encounter Date Diagnosis (ICD Code) Assessment Notes Treatment Notes Treatment Clinical Notes Section Notes 01/16/2025 Encounter for genera l adult medical examination without abnormal findings (ICD-10 - Z00.00) OVerall stable, await results of stress test01/16/2025Essential (primary) hypertension (ICD-10 - I10)BP stable, continue current meds110/24/2023Encounter for laboratory test (ICD-10 - Z01.89)12/12/2024Other chest pain (ICD-10 - R07.89)Please schedule stress test at [facility] sent12/12/2024 Essential (primary) hypertension (ICD-10 - I10)BP stable, continue current meds 07/22/2025Gastroesophageal reflux disease, esophagitis presence not specified (ICD-10 - K21.9)08/09/2024Mixed hyperlipidemia (ICD-10 - E78.2)09/05/2024 Gastroesophageal reflux disease, esophagitis presence not specified (ICD-10 - K21.9)5Cough (ICD-10 - R05.9)4Personal history of transient ischemic attack (TIA), and cerebral infarction without residual deficits (ICD-10 - Z86.73)07/22/2025Essential (primary) hypertension (ICD-10 - I10)BP stable, continue current meds12/12/2024Mixed hyperlipidemia (ICD-10 - E78.2)Stable, continue current meds5Anxiety (ICD-10 - F41.9)Klasjeos43/21/2025 Gastroesophageal reflux disease, esophagitis presence not specified (ICD-10 - K21.9)Wfwbfq1012/12/2024Personal history of transient ischemic attack (TIA), and cerebral infarction without residual deficits (ICD-10 - Z86.73)Stable, continue all current meds.07/22/2025Mixed hyperlipidemia (ICD-10 - E78.2)STable, continue current med01/16/2025Mixed hyperlipidemia (ICD-10 - E78.2)Stable, continue current med Plan Of Treatment Pending Test Test Name Order Date Lexiscan Stress Nuclear Test 12/12/2024 EKG 10/12/2021 XR Humerus LT (2 views) * 11/14/2023 XR Chest PA and Lateral (Routine CXR) * 10/12/2021 Holter Monitor - 48 hrs 10/12/2021 Next Appt Details Provider Name:Bette Baca , 01/22/2026 04:00:00 PM, [address] [place], [address], Insurance Providers Payer Name Payer Address Payer Phone Subscriber Number Group Number Insured Name Patient Relationship to Insured Coverage Start Date Coverage End Date [employer] ACCESS PPO PLUS LOCAL PLAN [address] [place] [address] [id number] 1AVipin Brunner Self - patient is the insured 2 Medical (General) History Medical History History ICD Code Migraines HTNGERDLumbar Compression FxCVA - 12/26/21 due to L ICA occlusion s/p tpaSurgical History Surgery Date(Month/Year) stroke thrombectomy 12/2021 colonoscopy - normal 2018 appendectomy tonsillectomyHospitalization History Reason Date(Month/Year) Back injury- [facility] 01/2020 CP, SOB, dizziness - [place] 10/15- TT cva 12/26/21
--- OUTSIDE RECORDS SUMMARY | 2025-08-04 09:33 | XMS_ITS | Data Portability ---
Author Organization [place] - DEB FUENTES MD, PHD, [facility] Address [address] [place] [address] Assessment No assessment recorded. Plan of Treatment Reminders Order DateSubmit DateProviderLast Modified ByShelby DetailsLast Modified TimeDetailsAppointmentsNone recorded.LabNone recorded.ReferralNone recorded. ProceduresNone recorded.SurgeriesNone recorded.ImagingNone recorded.Medication OrdersZoloft 25 mg rgdghn56[id number], [address] [place], [place], [id number], 01 15:06:18 Patient TargetsNo targets recorded. Patient InstructionsNo instructions recorded. Reason for Referral None Reported. Problems Name Problem SNOMED Code Status Onset Date Resolution Date Notes Provider Name and Address Organization Details Recorded Time Anxiety 18588673 Active praveen pak [place] Alfred LEON MD, PHD09/19/2018 14:28:55 Problem Notes None recorded. Procedures Surgical History Date Name Laterality Status Provider Name and Address Organization Details Recorded Time Appendectomycompletedsalicia LEON MD, PHD 09/19/2018 14:30:05 Imaging Results None recorded. Procedure Notes None recorded. Medical Equipment None Reported. Allergies No known drug allergies Medications Name Sig Start Date Stop Date Status Note LastModified by Organization Details LastModified Time sumatriptan 100 mg tablet 09/19/2018completedNot AvailableNot AvailableNot Availablecephalexin 500 mg ddqhwyn9809/19/2018completedNot AvailableNot AvailableNot Availablesertraline 25 mg tabletTAKE 1 TABLET BY MOUTH EVERY DAYactiveNot AvailableNot AvailableNot AvailableSSD 1 % topical cream09/19/2018completedNot AvailableNot AvailableNot Available Vitals Date Recorded Body height Heart rate Respiratory rate Body temperature Body mass index (BMI) Body weight Oxygen saturation Systolic And Diastolic Provider Name and Address Organization Details Last Updated DateTime 9 158.11 cm 85 /min 18 /min 98.1 [degF] 29.1 kg/m2 15869.5 8 g 98 % 122/76 mm[Hg] praveen menendez CHANDAN LEON MD, PHD 9 14:28:07 Social History Question Answer Notes LastModified by Organization D etails LastModified Time Tobacco Smoking Status Never Smoker Not GcrstptpzKafmlmIkkxlu90/03/2020 03:54:38What Was The Date Of Your Most Recent Tobacco Screening?09/19/[id number]_4Information not available 07/01/2020 Sex: Unknown Functional Status None recorded. Mental Status None recorded. Family History Relationship Description Onset Age of this Age Resolved Age Notes LastModified by Organization Details LastModified Time Mother Essential hypertension udrqkar9Sur lnsvuwveo55/22/2019 14:29:09MotherHarmful pattern of use of alcohol adiokrd5Jau valjxewdp80/22/2019 14:29:49Maternal AuntMalignant neoplasm of hijnmxhhlwhnd2Jwl vofwepqga67/22/2019 14:29:22FatherHarmful pattern of use of aiwusxoxwuvrnp4Sdz evlzrcigs62/22/2019 14:29:49BrotherHarmful pattern of use of dajjpupttjgcux1Tuw nwueihmzl11/22/2019 14:29:49SisterHarmful pattern of use of fbonjzhtcidubn9Mlc ysttsrakv73/22/2019 14:29:49 Medical History Condition Response Coronary Artery Disease N Other N Gout N Kidney Stones N Blood Diseases N Hyperthyroidism N Breast Cancer N Blood Transfusion N Hospital Admission Other Than N Hypothyroidism N Lung Disease N Depression N COPD N Defects or Inherited Disease N Developmental or Behavioral Disorders N Breast Problem N Difficulty Swallowing N Anesthesia Complications N Meniere's disease N Anxiety Disorder Y Muscle, Joint, or Bone Problems N Obesity N Vision or Eye Problems N Arthritis N Head Injury/Concussion N Polyps N Infertility N Mental Disorder N Congenital Anomalies N Cancer N Varicosities N Stroke N Endometriosis N Bladder or Kidney Problems N High Cholesterol N Liver Disease N Fibromyalgia N Headaches N Kidney Disease N Allergies/Hayfever N Heart Problems N Ear or Hearing Problems N Hospitalizations N Thyroid Problems N GI Problems N ADD/ADHD N Skin Problems N Eating Disorder N Anemia N MRSA exposure N Constipation N Mental Illness N Ovarian Cancer N Diabetes N Bedwetting N Seizures/Epilepsy N Tuberculosis N AIDS/HIV N Congestive Heart Failure (CHF) N Eczema N Diverticulitis N Abuse/Domestic Violence N Asthma N Reflux/GERD N Hepatitis N Heart Disease N Pulmonary Embolism N Pre-Eclampsia N Hypertension N Chronic Ear Infections N Osteoporosis N Chicken Pox N Autism Spectrum Disorder (ASD) N Thrombophilias N Immunizations Vaccine Type Date Status Note Provider Nam e and Address Organization Details Recorded Time Tdap 09/20/2018 completed Not QyiqrsykfEsvdaiYpfmet10/18/2020 02:56:38 Past Encounters Encounter ID Performer Location Encounter Start Date Encounter Closed Date Diagnosis/Indication Diagnosis SNOMED-CT Code Diagnosis ICD10 Code Diagnosis IMO Codes Diagnosis Note [id number] Deb Leon MD Main Office [address] [place] [address] 09/19/2018 14:11:18 09/19/2018 14:39:02 Generalized anxiety disorder 76689837 F41.1 Immunization [id number] Health Concerns Section Related Observation LastModified by Organization Detai ls LastModified Time None Recorded Concern Status LastModified by Organization Details LastModified Time None Recorded Advance Directives Directive None Recorded Payers Insurance Date Sequence Insurance Name Policy Number Policy Enciso Covered Member ID Enciso Member ID Guarantor Name 02/02/2019 1 [facility] [id number] Vipin Che [id number] Vipin Che Notes Date Note Type Note Provider Name and Address Orga nization Details Recorded Time 09/19/2018 text/html Generalized Anxi ety DisorderReported by PatientPatient is here today as a new patient with a complaint of increased anxiety. He has struggles with this in the past, was hospitalized three years ago for this, and is now struggling again. He states he panics when he is in a new environment and has to perform a new job. Patient presents to the office as a new patient for evaluation of his anxiety. He has struggled with anxiety for a long time and was eventually hospitalized a few years ago when he took a very stressful position at his job. At that time he was started on Paxil which he took himself off because it made him feel worse and he gained a lot of weight. He was managing it on his own but recently noticedit starting to get worse again. 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 Sometimes he will feel so anxious that he cannot remember the words to a song or even see the notes. He will feelpanic in new situations or playing at a new venue. Anxiety runs in the family. His son was recentlystarted on Paxil and is doing very well. He does not smoke or do illicit drugs but does have a history of marijuana when he was young. His last set of labs was about 4 years ago. He has not seen a physician in several years. He did have a colonoscopy that was negative.Deb Leon MD [address] [place], [address], [facility] - DEB LEON MD, PHD09/20/2018 19:51:46
--- OUTSIDE RECORDS SUMMARY | 2025-08-04 09:33 | XMS_ITS | Clinical Summary ---
Author Organization [facility] Address [address], [address] [place] [address] Care Team Providers Care Postal Clerk Name Role Phone Unavailable Primary Care Provider Unavailabl e Social History Tobacco UseTypesPacks/DayYears UsedDateSmoking Tobacco: Never AssessedSex and Gender InformationValueDate RecordedSex Assigned at BirthNot on fileLegal Sex Male10/08/2012 9:33 PM ESTGender IdentityNot on fileSexual OrientationNot on file Plan of Treatment Not on file Insurance
--- OUTSIDE RECORDS SUMMARY | 2025-08-04 09:33 | XMS_ITS | Clinical Summary ---
Author Organization [employer] Address [id number] [address] [place] [address] Care Team Providers Care Network Technology Instructor Name Role Phone Bette Burnett MD Primary Care Provider + [phone] Allergies Active AllergyReactionsCriticalityNoted DateCommentsNo Known Drug Allergies 02/25/2017 Medications MedicationSigDispense QuantityRefillsLast FilledStart DateEnd DateStatus lisinopriL (PRINIVIL,ZESTRIL) 40 mg tablet Take 1 tablet (40 mg total) by mouth in the morning.09/20/2020ctive omeprazole (PriLOSEC) 20 mg capsule Take 1 capsule (20 mg total) by mouth every morning before breakfast.08/21/2020 Active metoprolol succinate XL (TOPROL-XL) 25 mg 24 hr tablet Indications:Essential hypertensionTake 1 tablet (25 mg total) by mouth daily. 90 tablet ctive aspirin 81 mg chewable tablet Chew 1 tablet (81 mg total) and swallow in the morning. 30 tablet 11012/31/2021ctive atorvastatin (LIPITOR) 80 mg tablet Take 1 tablet (80 mg total) by mouth nightly. 30 tablet 11012/30/2021ctive clopidogreL (PLAVIX) 75 mg tablet Take 1 tablet (75 mg total) by mouth in the morning.Active amLODIPine (NORVASC) 5 mg tablet Indications:hypertensionTAKE 1 TABLET (5 MG TOTAL) BY MOUTH IN THE MORNING. INDICATIONS: HIGH BLOOD PRESSURE. 90 tablet 5Active Active Problems ProblemNoted DateDiagnosed SxzxNrfdlnn61/18/2025hest pain, unspecified type 10/15/2024History of ischemic kxromj12/20/2022Cerebrovascular accident (CVA) due to occlusion of carotid rhcohg0612/26/2021Essential rgzgiataxnkk23/01/2021 Immunizations ImmunizationAdministration DatesNext CkxEbxm1003/25/2025,09/20/2018 Family History Medical HistoryRelationNameCommentsNo Known ProblemsFatherDiabetesMaternal Aunt Breast cancerMotherRelationNameStatusCommentsFatherDeceasedMaternal AuntMother Social History Tobacco UseTypesPacks/DayYears UsedDateSmoking Tobacco: NeverSmokeless Tobacco: NeverAlcohol UseStandard Drinks/WeekCommentsYes0 (1 standard drink = 0.6 oz pure alcohol)once nightlyAHC UtilitiesAnswerDate RecordedIn the past 12 months has the [employer], gas, oil, or water [employer] threatened to shut off services in your home?No10/15/2024UDIT-CAnswerDate RecordedQ1: How often do you have a drink containing alcohol?4 or more times a week10/15/2024Q2: How many drinks containing alcohol do you have on a typical day when you are drinking?1 or 2 10/15/2024Q3: How often do you have six or more drinks on one occasion?Never 10/15/2024PHQ-2AnswerDate RecordedTotal Nektk290PRAPARE - Transportation AnswerDate RecordedIn the past 12 months, has lack of transportation kept you from medical appointments or from getting medications?No10/15/2024In the past 12 months, has lack of transportation kept you from meetings, work, or from getting things needed for daily living?No10/15/2024Housing InstabilityAnswerDate RecordedAre you worried or concerned that in the next two months you may not have stable housing that you own, rent or stay in as a part of a household?No 10/15/2024hildcareAnswerDate NtrkesfeIczhgxvvgUgryrtf67/12/2019EmploymentAnswer Date RvwtaoesBoerirohuxJpfvpku20/12/2019Hunger ScreeningAnswerDate Recorded Within the past 12 months we worried whether our food would run out before we got money to buy more.Never True03/29/2025Within the past 12 months the food we bought just didn't last and we didn't have money to get more.Never True 03/29/2025Purpose - LifeAnswerDate RecordedPurpose and direction in lifeUnknown 10/09/2020ex and Gender InformationValueDate RecordedSex Assigned at BirthNot on fileLegal UaaIfbs0804/03/2015 11:33 AM EDTGender IdentityNot on fileSexual OrientationNot on file Last Filed Vital Signs Vital SignReadingTime TakenCommentsBlood Ffuocjhn417/9808 12:03 PM EDT Vewbq105303/29/2025 12:03 PM KDHNbqynloejes73.7 ??C (98.1 ??F)03/29/2025 11:17 AM EDTRespiratory Kbdi957703/29/2025 12:03 PM EDTOxygen Eqdelisvda11%03/29/2025 12:03 PM EDTInhaled Oxygen Concentration--Dleddw82.6 kg (160 lb)03/29/2025 11:17 AM NSDIijsge046 cm (5' 3 )03/29/2025 11:17 AM EDTBody Mass Index28.34003/29/2025 11:17 AM EDT Plan of Treatment Health MaintenanceDue DateLast DoneCommentsAdult BMI Follow Up Plan12/01/1979 Zoster (Shingles) Vaccine (1 of 2)12/01/2011Influenza Hatsdzd1304/29/2025 Depression Apsxnwadk61dult BMI Uzuynukct85 Tobacco Fupvqlyvj45DTaP,Tdap and Td Vaccines (3 - Td or Tdap) 5003/25/2025, 09/20/2018RSV ( or age 60+ yrs) (1 - 1-dose 75+ series)2036 Goals GoalPatient Goal TypeAssociated ProblemsRecent ProgressPatient-Stated?Author home Fabiana Teran, RN Note: Evaluation of progress towards goal: Return home with self care and support from spouse. Medical Devices Not on file Insurance , [place] [address] Advance Directives * Full Code (Latest Code Status on File) Date ActivatedDate InactivatedComments10/15/2024 2:37 PM2 6:00 PM * Full Code Date ActivatedDate InactivatedComments12/26/2021 6:02 PM12/30/2021 4:18 PM Care Teams Team MemberRelationshipSpecialtyStart DateEnd Date Bette Burnett MD [address] [place] [phone] PCP - GeneralFamily Medicine03/29/25
--- OUTSIDE RECORDS SUMMARY | 2025-08-04 09:33 | XMS_ITS | Clinical Summary ---
Author Organization [facility] Address [address] [place] [address] Care Team Providers Care Wardsperson Name Role Phone Unavailable Primary Care Provider Unavailabl e Social History Tobacco UseTypesPacks/DayYears UsedDateSmoking Tobacco: Never AssessedSex and Gender InformationValueDate RecordedSex Assigned at BirthNot on fileLegal Sex Male02/25/2022 12:31 AM EDTGender IdentityNot on fileSexual OrientationNot on file Last Filed Vital Signs Vital SignReadingTime TakenCommentsBlood Rrzstasn037/8102/04/2021 3:12 PM EDT Dselz997402/04/2021 3:12 PM EDTTemperature--Respiratory Rate--Oxygen Saturation-- Inhaled Oxygen Concentration--Zptyth33.8 kg (165 lb)02/04/2021 3:09 PM EDTHeight 160 cm (5' 3 )02/04/2021 3:09 PM EDTBody Mass Index29.2306 3:09 PM EDT Plan of Treatment Not on file
[2025-08-04 09:44] LABS: Alanine Aminotransferase 36 U/L (16-63); Albumin Globulin Ratio 1.3; Albumin Level 3.9 g/dL (3.4-5.0); Alkaline Phosphatase 93 U/L (46-116); Amylase 28 U/L (25-115); Anion Gap 16.6; Aspartate Amino Transferase 22 U/L (15-37); Blood Urea Nitrogen 15.0 mg/dL (7.0-18.0); Calcium 8.9 mg/dL (8.5-10.1); Carbon Dioxide 24.0 mmol/L (21.0-32.0); Chloride 108 mmol/L (98-107); Estimated GFR (African America >60 (>=60 mL/min/1.73m^2); Estimated GFR (Non-African Ame >60 (>=60 mL/min/1.73m^2); Globulin 3.1 g/dL; Glucose 133 mg/dL (74-106); Lipase 42.0 U/L (16.0-77.0); Potassium 4.6 mmol/L (3.5-5.1); Sodium 144 mmol/L (136-145); Total Protein 7.0 g/dL (6.4-8.2)
[2025-08-04 10:35] LABS: Glucose Urine UA NEGATIVE (NEGATIVE)
[2025-08-04 10:46] LABS: Cast Seen? NONE SEEN #/LPF (NONE SEEN); Crystals Seen? None Seen #/HPF (None Seen)
== END 2025-08-04 11:22 | disposition home or self-care (01) ==
PROVIDERS: Emergency Provider Emergency Medicine; PCP Family Medicine
DX: R10.9 Unspecified abdominal pain (principal)
CPT/HCPCS: 36415; 74177; 80048; 80076; 81001; 82150; 83690; 85025; 99284; Q9967